=== PATIENT | female | born 1985 | race Caucasian/White ===

== ENCOUNTER → 2016-12-17 | Outpatient (REF) | payer BC | LOC: M SFHCLERA 12:11 | PROVIDERS: ATTEND Nurse Practitioner Family | DX: J06.9 Acute upper respiratory infection, unspecified (principal) ==

== ENCOUNTER 2020-10-09 08:29 | Emergency (ER) | payer OTHER, BC ==
[~2020-10-09] VITALS: Ht 157.5 cm; Wt 88.6 kg
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
[2020-10-09] MEDS ORDERED: IBUP-1022 PO (09:53)
[2020-10-09 10:23] VITALS: BP 129/84
== END 2020-10-09 10:40 | disposition home or self-care (01) ==
LOC: M ED 08:29
DX: S16.1XXA Strain of muscle, fascia and tendon at neck level, initial encounter (principal); V49.49XA Driver injured in collision with other motor vehicles in traffic accident, initial encounter; Y92.410 Unspecified street and highway as the place of occurrence of the external cause